=== PATIENT | male | born 1990 | race Caucasian/White ===

== ENCOUNTER 2018-11-09 21:13 | Emergency (ER) | payer OTHER ==
[~2018-11-09] VITALS: Ht 172.7 cm; Wt 84.9 kg
[~2018-11-09 21:13] MED LIST: BACI28.34 TOP; CEPH-443 PO
[2018-11-09 21:19] VITALS: BP 141/73; PULSE 95; RESP 20; Ht 172.7 cm; Wt 84.9 kg
[2018-11-09] MEDS ORDERED: IBUPROFEN 800 MG TAB PO STA (23:19)
[2018-11-09] MEDS ORDERED: LIDOCAINE 2%/EPI MPF (SDV) 20 ML VIAL INJ STA (23:19)
[2018-11-09] MEDS ORDERED: DIPHTH/TET/ACEL PERTUSS (ADULT) 0.5 ML VIAL IM* ONE (23:30)
== END 2018-11-10 01:07 | disposition home or self-care (01) ==
LOC: FTE 21:13
DX: S81.012A Laceration without foreign body, left knee, initial encounter (principal); F17.210 Nicotine dependence, cigarettes, uncomplicated; W01.198A Fall on same level from slipping, tripping and stumbling with subsequent striking against other object, initial encounter; Y92.039 Unspecified place in apartment as the place of occurrence of the external cause; Z23 Encounter for immunization
CPT/HCPCS: 12002; 73562; 90471; 90715; Z7502; Z7610